=== PATIENT | male | born 1990 | race Hispanic/Latino ===

== ENCOUNTER 2023-12-29 21:45 | Inpatient (IN) | payer SELFPAY ==
[2023-12-29 22:30] LABS: #Basophils 0.05 10x3/uL (0.0-0.2); %Basophils 0.4 % (0.0-1.0); %Eosinophils 4.1 % (0.0-10.0); %Lymphocytes 18.2 % (21.0-51.0); %Monocytes 7.6 % (0.0-10.0); %Neutrophils 69.4 % (42.0-75.0); Hematocrit 49.8 % (42.0-52.0); Hemoglobin 17.9 g/dL (14.0-18.0); Mean Corpuscular HGB CONC 35.9 g/dL (32.0-36.0); Mean Corpuscular Volume 88.9 fL (78.0-98.0); Mean Platelet Volume 8.3 fL (7.4-10.4); Platelet Count 380 10x3/uL (130-400); RBC Distribution Width 12.5 % (11.5-14.5)
[2023-12-29 23:05] LABS: ALT (SGPT) 40 U/L (8-55); AST (SGOT) 36 U/L (5-34); Albumin 5.5 g/dL (3.5-5.0); Alkaline Phosphatase 102 U/L (40-110); Anion Gap 21 mmol/L (10-20); BUN (Urea Nitrogen) 20 mg/dL (8.9-20.6); Calc. Creatinine Clearance 0 mL/min (70-130); Calcium 10.7 mg/dL (7.8-10.44); Carbon Dioxide 27 mmol/L (22-29); Chloride 89 mmol/L (98-107); Estimated GFR 31; Globulin 4.4 g/dL (2.4-3.5); Glucose 115 mg/dL (70-105); Lipase 15 U/L (8-78); Potassium 4.3 mmol/L (3.5-5.1); Protein, Total 9.9 g/dL (6.0-8.3); Sodium 133 mmol/L (136-145)
[2023-12-29] MEDS ORDERED: Ketorolac Tromethamine 30 MG (1 mL) VIAL ONE (23:22)
[2023-12-29] MEDS ORDERED: Ondansetron ODT 4 MG TAB ONE (23:22)
[2023-12-30] MEDS ORDERED: Famotidine 20 MG TAB ONE (00:10)
[2023-12-30] MEDS ORDERED: Lidocaine Viscous Sol 2% 15 ml UD Cup ONE (00:13)
[2023-12-30] MEDS ORDERED: Mag-Al 1200 mg/1200 mg/30 ML UDCUP ONE (00:13)
[2023-12-30 00:36] LABS: Troponin I Less than 0.010 ng/mL (< 0.028)
[2023-12-30] MEDS ORDERED: Acetaminophen 325 MG TAB PO PRN (02:27)
[2023-12-30] MEDS ORDERED: Ondansetron ODT 4 MG TAB PO PRN (02:27)
[2023-12-30] MEDS ORDERED: Ondansetron PF 4 MG/2 ML Vial IVP PRN (02:27)
[2023-12-30] MEDS ORDERED: traMADol HCl 50 MG TAB PO PRN (02:27)
[2023-12-30 02:47] LABS: Bilirubin 1+ (Negative); Blood, Urine 2+ (Negative); CAUTI Indications for Culture Dysuria,urgency,freq; Clarity Turbid (Clear); Glucose, Urine (Dipstick) Normal (Negative); Ketone, Urine Negative (Negative); Leukocyte Negative Leu/uL (Negative); Nitrite Negative (Negative); Protein, Urine (Dipstick) 100 mg/dL (Neg-Trace); Specific Gravity, Urine 1.025 (1.002-1.036); Urobilinogen 3 mg/dL (Less than 2); pH, Urine 5.5 (5.0-9.0)
[2023-12-30 02:48] LABS: RBC/HPF 0-3 HPF (0-3)
[2023-12-30 02:49] LABS: Bacteria/HPF Rare-Few HPF (None Seen); Calcium Oxalate Crystals 2+ HPF (None Seen)
[2023-12-30 02:50] LABS: Urine Culture Reflex Yes Yes
[2023-12-30 03:33] LABS: #Basophils 0.03 10x3/uL (0.0-0.2); %Basophils 0.4 % (0.0-1.0); %Eosinophils 3.9 % (0.0-10.0); %Lymphocytes 22.2 % (21.0-51.0); %Monocytes 7.4 % (0.0-10.0); %Neutrophils 65.9 % (42.0-75.0); Hematocrit 47.1 % (42.0-52.0); Hemoglobin 16.3 g/dL (14.0-18.0); Mean Corpuscular HGB CONC 34.6 g/dL (32.0-36.0); Mean Corpuscular Hemoglobin 31.9 pg (27.0-31.0); Mean Corpuscular Volume 92.2 fL (78.0-98.0); Mean Platelet Volume 8.4 fL (7.4-10.4); Platelet Count 336 10x3/uL (130-400); RBC Distribution Width 12.4 % (11.5-14.5); Red Blood Cell (RBC) Count 5.11 mill/uL (4.70-6.10)
[2023-12-30 03:48] LABS: Phosphorus 4.6 mg/dL (2.3-4.7)
[2023-12-30 03:50] LABS: ALT (SGPT) 32 U/L (8-55); AST (SGOT) 30 U/L (5-34); Albumin 4.5 g/dL (3.5-5.0); Alkaline Phosphatase 86 U/L (40-110); Anion Gap 19 mmol/L (10-20); BUN (Urea Nitrogen) 22 mg/dL (8.9-20.6); Bilirubin, Total 0.8 mg/dL (0.2-1.2); Calc. Creatinine Clearance 0 mL/min (70-130); Calcium 9.1 mg/dL (7.8-10.44); Carbon Dioxide 23 mmol/L (22-29); Chloride 96 mmol/L (98-107); Estimated GFR 51; Globulin 3.8 g/dL (2.4-3.5); Glucose 101 mg/dL (70-105); Magnesium 2.8 mg/dL (1.6-2.6); Potassium 3.6 mmol/L (3.5-5.1); Protein, Total 8.3 g/dL (6.0-8.3); Sodium 134 mmol/L (136-145)
[2023-12-30 04:32] VITALS: BMI 27.3
[2023-12-30 04:33] LABS: Amphetamine Detected (NotDetected); Barbiturates Screen Not Detected (NotDetected); Benzodiazepine Screen Not Detected (NotDetected); Cocaine Metabolite Screen Detected (NotDetected); Methadone Not Detected (NotDetected); Methamphetamine Detected (NotDetected); Opiate Screen Not Detected (NotDetected); Oxycodone Screen Not Detected (NotDetected); Phencyclidine (PCP) Not Detected (NotDetected); THC/Cannabinoid Screen Not Detected (NotDetected); Tricyclic Screen Not Detected (NotDetected)
[2023-12-30] MEDS ORDERED: Ketorolac Tromethamine 30 MG (1 mL) VIAL IVP PRN (04:50)
[2023-12-30] MEDS: Sodium Chloride 0.9% 1,000 ML IV SCH ×2 (04:52→15:16)
[2023-12-30 08:03] LABS: Influenza A by NAA Not Detected (NotDetected); Influenza B by NAA Not Detected (NotDetected); SARS-CoV-2 NAA Rapid Test Not Detected (NotDetected)
[2023-12-30] MEDS ORDERED: Famotidine/PF 20 mg/2ml Vial SLOW IVP SCH (09:00)
[2023-12-30] MEDS: Famotidine 20 MG TAB PO SCH (10:06)
[2023-12-30] MEDS: Heparin 5,000 UNITS/ML VIAL SC SCH (10:06)
[2023-12-30] MEDS: Famotidine/PF 20 mg/2ml Vial SLOW IVP SCH (10:07)
[2023-12-30] MEDS: cefTRIAXone\\ROCEPHIN 1 GM in Sodium Chloride 0.9% 100 ML IVPB SCH (13:40)
[2023-12-31] MEDS: Famotidine 20 MG TAB PO SCH (09:47)
[2023-12-31 10:08] LABS: Anion Gap 12 mmol/L (10-20); BUN (Urea Nitrogen) 15 mg/dL (8.9-20.6); Calc. Creatinine Clearance 126 mL/min (70-130); Calcium 7.9 mg/dL (7.8-10.44); Carbon Dioxide 24 mmol/L (22-29); Chloride 108 mmol/L (98-107); Estimated GFR 122; Glucose 93 mg/dL (70-105); Potassium 3.8 mmol/L (3.5-5.1); Sodium 140 mmol/L (136-145)
[2023-12-31 19:36] VITALS: BP 122/56; TEMP 98.5
== END 2023-12-31 18:30 | disposition home or self-care (01) | DRG 872 ==
LOC: ERS 21:45 → T4-B 12-30 02:29 → OBSVTOIN 12-30 11:04
PROVIDERS: ADMIT Internal Medicine; ATTEND Family Medicine
DX: A41.9 Sepsis, unspecified organism (principal); N17.9 Acute kidney failure, unspecified; M62.82 Rhabdomyolysis; N39.0 Urinary tract infection, site not specified; E86.0 Dehydration; R65.20 Severe sepsis without septic shock; Z79.01 Long term (current) use of anticoagulants; Z79.899 Other long term (current) drug therapy; F14.90 Cocaine use, unspecified, uncomplicated; R16.0 Hepatomegaly, not elsewhere classified
CPT/HCPCS: 36415; 71045; 74176; 76705; 80048; 80053; 80306; 81001; 82550; 83690; 83735; 84100; 84484; 85025; 87040; 87077; 87086; 87149; 93005; J0696; J1644; J1885; J7030; Q0162